=== PATIENT | male | born 1975 | race Caucasian/White ===

== ENCOUNTER 2018-02-28 20:13 | Emergency (ER) | payer OTHER ==
[2018-02-28 22:29] LABS: ABS Basophils 0 10^3/ul (0-0.2); ABS Eosinophils 0 10^3/ul (0-0.6); ABS Lymphocytes 1.7 10^3/ul (1.0-4.8); ABS Monocytes 0.7 10^3/ul (0-0.8); ABS Nucleated RBC 0 10^3/ul; Eosinophil % 0.1 % (0-6); Hematocrit 43 % (42-52); Hemoglobin 14.6 g/dl (14.0-18.0); Mean Corpuscular HGB Conc 34 g/dl (31-36); Mean Corpuscular Hemoglobin 31 pg (27-31); Mean Corpuscular Volume 90 fL (80-94); Mean Platelet Volume 7.1 um3 (7.4-10.4); Nucleated Red Blood Cells % 0.1; Platelet Count 161 10^3/ul (150-450); Red Blood Count 4.73 10^6/ul (4.00-5.40); Red Cell Distribution Width 15 % (10.5-15); White Blood Count 6.5 10^3/ul (3.5-10.8)
[2018-02-28 22:36] LABS: INR 0.86 (0.77-1.02)
[2018-02-28 22:49] LABS: EGFR Non-African American 110.9 (>60)
[2018-02-28 22:51] LABS: Urine Appearance Clear; Urine Blood Negative (Negative); Urine Color Straw; Urine Ketones Negative (Negative); Urine Protein Negative (Negative); Urine Specific Gravity 1.002 (1.010-1.030); Urine Urobilinogen Negative (Negative)
[2018-02-28] MEDS ORDERED: NS 0.9% 1000 ML* 2,000 ML IV ONE (23:39)
[2018-02-28] MEDS ORDERED: Ibuprofen TAB* 600 MG PO ONE (23:40)
--- NOTE | 2018-03-01 01:19 | ED ---
Substance Abuse/Use - HPI Summary HPI Summary: Level 5 caveat: Unable to obtain complete HPI due to AMS secondary to EtOH use The pt is a 43 y/o male accompanied by his sister presenting to [facility] c/o tremors since yesterday evening. He notes fever reaching 102 F, unproductive cough, muscular aches, sore throat, palpitations and a fall from his bed but denies head trauma and LOC. He reports that he tripped over a cord. The pt reports that he was sober for the last 1 year but relapsed. He currently consumes about 1L EtOH a day. His last drink was at 17:00 hrs today. The pt requests referral to EtOH rehabilitation. He has been attending AA meetings. - History Of Current Complaint Chief Complaint: EDGeneral Stated Complaint: SYNCOPE Time Seen by Provider: 02/28/18 22:52 Hx Obtained From: Patient, Family/Staff Veterinarian - Sister Hx From Patient Unobtainable Due To: Altered Mental Status Onset/Duration of Drug/ETOH Abuse: Years Timing Of Abuse: Daily, Recent Cessation For A Period Of - 1 year with relapse Alleviating Factor(s): Nothing Associated Signs And Symptoms: Palpitations, Cough Related Hx: Drug/Alcohol Last Used @ - 1700 hrs on 02/28/2018 - Allergies/Home Medications Allergies/Adverse Reactions: Allergies Allergy/AdvReac Type Severity Reaction Status Date / Time No Known Allergies Allergy Verified 02/28/18 20:17 PMH/Surg Hx/FS Hx/Imm Hx Previously Healthy: No - Level 5 caveat: Unable to obtain complete Mhx due to AMS secondary to EtOH Endocrine/Hematology History: Denies: Hx Diabetes Cardiovascular History: Denies: Hx Hypertension GI History: Reports: Other GI Disorders - [place] Sensory History: Denies: Hx Deafness, Hx Hearing Aid Neurological History: Reports: Hx Seizures - Alcohol withdrawal seizures - Cancer History Cancer Type, Location and Year: None reported - Surgical History Surgery Procedure, Year, and Place: None reported - Immunization History Immunizations Up to Date: Yes Infectious Disease History: No Infectious Disease History: Denies: Traveled Outside the [place] in Last 30 Days - Family History Known Family History: Positive: Hypertension - Social History Occupation: Employed Full-time Lives: With Family Alcohol Use: Daily Alcohol Amount: 1/2 liter of vodka per day (more some days) Substance Use Type: Reports: None Smoking Status (MU): Never Smoked Tobacco Review of Systems Constitutional: Negative - Head trauma, LOC , Other - Positive: Tremors, fall Positive: Fever Positive: Sore Throat Positive: Palpitations Positive: Cough Musculoskeletal: Other - Positive: Muscular aches All Other Systems Reviewed And Are Negative: No - Comments Additional Review of Systems Comments: Level 5 caveat: Unable to obtain complete ROS due to AMS secondary to EtOH use Physical Exam - Summary Physical Exam Summary: Level 5 caveat: Unable to obtain complete PE due to AMS secondary to EtOH use GENERAL: Patient is a well developed and nourished M who is lying comfortable in the stretcher. Patient is not in any acute respiratory distress. HEAD AND FACE: Normocephalic EYES: PERRLA, EOMI x 2. EARS: Hearing grossly intact. MOUTH: Oropharynx within normal limits. NECK: Supple, trachea is midline, no adenopathy, no JVD, no carotid bruit. CHEST: Symmetric, no tenderness at palpation LUNGS: Clear to auscultation bilaterally. No wheezing or crackles. CVS: Tachycardia. S1 and S2 present, no murmurs or gallops appreciated. ABDOMEN: Soft, non-tender. Bowel sounds are normal. No abdominal abnormal pulsations. EXTREMITIES: Full ROM in all major joints, no edema, no cyanosis or clubbing. NEURO: Alert and oriented x 3. No acute neurological deficits. Speech is normal and follows commands. SKIN: Dry mucous membranes. Warm Triage Information Reviewed: Yes Vital Signs On Initial Exam: Initial Vitals Temp Pulse Resp BP Pulse Ox 98.7 F 110 16 152/92 96 02/28/18 20:15 02/28/18 20:15 02/28/18 20:15 02/28/18 20:15 02/28/18 20:15 Vital Signs Reviewed: Yes Diagnostics - Vital Signs Vital Signs Temp Pulse Resp BP Pulse Ox 02/28/18 23:54 94 17 123/91 96 02/28/18 23:39 98.1 F 02/28/18 23:23 101 20 138/86 97 02/28/18 23:00 96 12 93 02/28/18 22:53 98 18 138/79 97 02/28/18 22:26 102 15 95 02/28/18 22:23 98 17 149/83 95 02/28/18 20:15 98.7 F 110 16 152/92 96 - Laboratory Lab Results: Lab Results 02/28/18 02/28/18 02/28/18 Range/Units 22:13 22:13 22:13 WBC 6.5 (3.5-10.8) 10^3/ul RBC 4.73 (4.00-5.40) 10^6/ul Hgb 14.6 (14.0-18.0) g/dl Hct 43 (42-52) % MCV 90 (80-94) fL MCH 31 (27-31) pg MCHC 34 (31-36) g/dl RDW 15 (10.5-15) % Plt Count 161 (150-450) 10^3/ul MPV 7.1 L (7.4-10.4) um3 Neut % (Auto) 61.8 (38-83) % Lymph % (Auto) 26.0 (25-47) % [place] % (Auto) 11.6 H (0-7) % Eos % (Auto) 0.1 (0-6) % Baso % (Auto) 0.5 (0-2) % Absolute Neuts (auto) 4.0 (1.5-7.7) 10^3/ul Absolute Lymphs (auto) 1.7 (1.0-4.8) 10^3/ul Absolute Monos (auto) 0.7 (0-0.8) 10^3/ul Absolute Eos (auto) 0 (0-0.6) 10^3/ul Absolute Basos (auto) 0 (0-0.2) 10^3/ul Absolute Nucleated RBC 0 10^3/ul Nucleated RBC % 0.1 INR (Anticoag Therapy) 0.86 (0.77-1.02) Sodium 138 (135-145) mmol/L Potassium 3.8 (3.5-5.0) mmol/L Chloride 98 L (101-111) mmol/L Carbon Dioxide 26 (22-32) mmol/L Anion Gap 14 H (2-11) mmol/L BUN 7 (6-24) mg/dL Creatinine 0.76 (0.67-1.17) mg/dL Est GFR ( Amer) 134.2 (>60) Est GFR (Non-Af Amer) 110.9 (>60) BUN/Creatinine Ratio 9.2 (8-20) Glucose 142 H (70-100) mg/dL Calcium 8.8 (8.6-10.3) mg/dL Total Bilirubin 0.60 (0.2-1.0) mg/dL AST 180 H (13-39) U/L ALT 99 H (7-52) U/L Alkaline Phosphatase 94 (34-104) U/L Troponin I 0.01 (<0.04) ng/mL Total Protein 7.3 (6.4-8.9) g/dL Albumin 3.6 (3.2-5.2) g/dL Globulin 3.7 (2-4) g/dL Albumin/Globulin Ratio 1.0 (1-3) Urine Color Urine Appearance Urine pH (5-9) Ur Specific [place] (1.010-1.030) Urine Protein (Negative) Urine Ketones (Negative) Urine Blood (Negative) Urine Nitrate (Negative) Urine Bilirubin (Negative) Urine Urobilinogen (Negative) Ur Leukocyte Esterase (Negative) Urine Glucose (Negative) Urine Opiates Screen (None Detect) Ur Barbiturates Screen (None Detect) Ur Phencyclidine Scrn (None Detect) Ur Amphetamines Screen (None Detect) U Benzodiazepines Scrn (None Detect) Urine Cocaine Screen (None Detect) U Cannabinoids Screen (None Detect) Serum Alcohol 370 H (<10) mg/dL Influenza A (Rapid) (Negative) Influenza B (Rapid) (Negative) Group A Strep Rapid (Negative) 02/28/18 02/28/18 02/28/18 Range/Units 22:41 22:41 23:46 WBC (3.5-10.8) 10^3/ul RBC (4.00-5.40) 10^6/ul Hgb (14.0-18.0) g/dl Hct (42-52) % MCV (80-94) fL MCH (27-31) pg MCHC (31-36) g/dl RDW (10.5-15) % Plt Count (150-450) 10^3/ul MPV (7.4-10.4) um3 Neut % (Auto) (38-83) % Lymph % (Auto) (25-47) % [place] % (Auto) (0-7) % Eos % (Auto) (0-6) % Baso % (Auto) (0-2) % Absolute Neuts (auto) (1.5-7.7) 10^3/ul Absolute Lymphs (auto) (1.0-4.8) 10^3/ul Absolute Monos (auto) (0-0.8) 10^3/ul Absolute Eos (auto) (0-0.6) 10^3/ul Absolute Basos (auto) (0-0.2) 10^3/ul Absolute Nucleated RBC 10^3/ul Nucleated RBC % INR (Anticoag Therapy) (0.77-1.02) Sodium (135-145) mmol/L Potassium (3.5-5.0) mmol/L Chloride (101-111) mmol/L Carbon Dioxide (22-32) mmol/L Anion Gap (2-11) mmol/L BUN (6-24) mg/dL Creatinine (0.67-1.17) mg/dL Est GFR ( Amer) (>60) Est GFR (Non-Af Amer) (>60) BUN/Creatinine Ratio (8-20) Glucose (70-100) mg/dL Calcium (8.6-10.3) mg/dL Total Bilirubin (0.2-1.0) mg/dL AST (13-39) U/L ALT (7-52) U/L Alkaline Phosphatase (34-104) U/L Troponin I (<0.04) ng/mL Total Protein (6.4-8.9) g/dL Albumin (3.2-5.2) g/dL Globulin (2-4) g/dL Albumin/Globulin Ratio (1-3) Urine Color Straw Urine Appearance Clear Urine pH 7.0 (5-9) Ur Specific [place] 1.002 L (1.010-1.030) Urine Protein Negative (Negative) Urine Ketones Negative (Negative) Urine Blood Negative (Negative) Urine Nitrate Negative (Negative) Urine Bilirubin Negative (Negative) Urine Urobilinogen Negative (Negative) Ur Leukocyte Esterase Negative (Negative) Urine Glucose Negative (Negative) Urine Opiates Screen None detected (None Detect) Ur Barbiturates Screen None detected (None Detect) Ur Phencyclidine Scrn None detected (None Detect) Ur Amphetamines Screen None detected (None Detect) U Benzodiazepines Scrn None detected (None Detect) Urine Cocaine Screen None detected (None Detect) U Cannabinoids Screen None detected (None Detect) Serum Alcohol (<10) mg/dL Influenza A (Rapid) (Negative) Influenza B (Rapid) (Negative) Group A Strep Rapid Negative (Negative) 02/28/18 Range/Units 23:46 WBC (3.5-10.8) 10^3/ul RBC (4.00-5.40) 10^6/ul Hgb (14.0-18.0) g/dl Hct (42-52) % MCV (80-94) fL MCH (27-31) pg MCHC (31-36) g/dl RDW (10.5-15) % Plt Count (150-450) 10^3/ul MPV (7.4-10.4) um3 Neut % (Auto) (38-83) % Lymph % (Auto) (25-47) % [place] % (Auto) (0-7) % Eos % (Auto) (0-6) % Baso % (Auto) (0-2) % Absolute Neuts (auto) (1.5-7.7) 10^3/ul Absolute Lymphs (auto) (1.0-4.8) 10^3/ul Absolute Monos (auto) (0-0.8) 10^3/ul Absolute Eos (auto) (0-0.6) 10^3/ul Absolute Basos (auto) (0-0.2) 10^3/ul Absolute Nucleated RBC 10^3/ul Nucleated RBC % INR (Anticoag Therapy) (0.77-1.02) Sodium (135-145) mmol/L Potassium (3.5-5.0) mmol/L Chloride (101-111) mmol/L Carbon Dioxide (22-32) mmol/L Anion Gap (2-11) mmol/L BUN (6-24) mg/dL Creatinine (0.67-1.17) mg/dL Est GFR ( Amer) (>60) Est GFR (Non-Af Amer) (>60) BUN/Creatinine Ratio (8-20) Glucose (70-100) mg/dL Calcium (8.6-10.3) mg/dL Total Bilirubin (0.2-1.0) mg/dL AST (13-39) U/L ALT (7-52) U/L Alkaline Phosphatase (34-104) U/L Troponin I (<0.04) ng/mL Total Protein (6.4-8.9) g/dL Albumin (3.2-5.2) g/dL Globulin (2-4) g/dL Albumin/Globulin Ratio (1-3) Urine Color Urine Appearance Urine pH (5-9) Ur Specific [place] (1.010-1.030) Urine Protein (Negative) Urine Ketones (Negative) Urine Blood (Negative) Urine Nitrate (Negative) Urine Bilirubin (Negative) Urine Urobilinogen (Negative) Ur Leukocyte Esterase (Negative) Urine Glucose (Negative) Urine Opiates Screen (None Detect) Ur Barbiturates Screen (None Detect) Ur Phencyclidine Scrn (None Detect) Ur Amphetamines Screen (None Detect) U Benzodiazepines Scrn (None Detect) Urine Cocaine Screen (None Detect) U Cannabinoids Screen (None Detect) Serum Alcohol (<10) mg/dL Influenza A (Rapid) Negative (Negative) Influenza B (Rapid) Negative (Negative) Group A Strep Rapid (Negative) Result Diagrams: 02/28/18 22:13 02/28/18 22:13 Lab Statement: Any lab studies that have been ordered have been reviewed, and results considered in the medical decision making process. - Radiology CXR Radiology Interpretation Completed By: ED Physician - IMPRESSION: No acute processes - EKG 22:14 Cardiac Rate: Tachycardia - 101 bpm Summary of EKG Findings: Normal axes Course/Dx - Course Course Of Treatment: A 43 year-old M presents to the ED with a CC of tremors since today evening. He notes fever reaching 102 F, unproductive cough, muscular aches, sore throat, and palpitations. The pt reports that he was sober for the last 1 year but relapsed. A physical exam revealed tachycardia and dry mucous memnranes. A CXR I unremarkable. An EKG reveals tachycardia. In the ED course, pt was given Chlordiazepoxide 25 mg PO, Iburofen 600mg PO and N.s 0.9% 2000 ml IV with much imrovment. Upon further investigation, his sister revealed that patient was brought here by his parents for inpatient detox. I explained to them that there is no detox service here at [facility]. Patient will be discharged with a final Dx of alcohol intoxication. I referred the patient to the [facility] for inpatient detoxication. He was given a Rx for valium to prevent withdrawal. I discussed results with patient and he agrees with this plan. He is hemodynamically stable upon discharge. Strict return precautions given and he will otherwise follow up with his PCP. Allergies noted. The pt will be accompanied by his sister upon departure. - Diagnoses Differential Diagnosis/HQI/PQRI: Positive: Alcohol Abuse, Alcohol Withdrawal Provider Diagnoses: Alcohol intoxication Discharge - Sign-Out/Discharge Documenting (check all that apply): Patient Departure - DC - Discharge Plan Condition: Improved Disposition: HOME Prescriptions: chlordiazePOXIDE CAP* [Librium CAP*] 25 mg PO TID #12 cap MDD 3 Patient Education Materials: Alcohol Intoxication (ED) Referrals: [facility] [Outside] Additional Instructions: Follow up with [facility] as soon as possible. Return to ED for any new or worsening symptoms - Billing Disposition and Condition Condition: IMPROVED Disposition: Home - Attestation Statements Document Initiated by Scribe: Yes Documenting Scribe: Zabrina Umana Provider For Whom Cora is Documenting (Include Credential): Dr. Lyndsey Paniagua MD Scribe Attestation: Zabrina Vega , scribed for Dr. Lyndsey Paniagua MD on 03/01/18 at 0524. Scribe Documentation Reviewed: Yes Provider Attestation: The documentation as recorded by the Zabrina anderson accurately reflects the service I personally performed and the decisions made by me, Dr. Lyndsey Paniagua MD
[2018-03-01] MEDS ORDERED: chlordiazePOXIDE CAP* 25 MG PO ONE (01:20)
[2018-03-01 02:16] VITALS: BP 138/79
--- NOTE | 2018-03-01 08:06 | RAD ---
HISTORY: syncope COMPARISONS: None VIEWS: 1: frontal AP view of the chest at 10:10 PM FINDINGS: LINES AND TUBES: None. CARDIOMEDIASTINAL SILHOUETTE: The cardiomediastinal silhouette is normal for portable technique. PLEURA: The costophrenic angles are sharp. No pleural abnormalities are noted. LUNG PARENCHYMA: The lungs are clear. ABDOMEN: The upper abdomen is clear. There is no subphrenic gas. BONES AND SOFT TISSUES: No bone or soft tissue abnormalities are noted. IMPRESSION: NO ACTIVE CARDIOPULMONARY DISEASE. R0
== END 2018-03-01 02:15 | disposition home or self-care (01) ==
LOC: ED 20:13
DX: F10.129 Alcohol abuse with intoxication, unspecified (principal); R50.9 Fever, unspecified; J02.9 Acute pharyngitis, unspecified; R00.2 Palpitations; R05 Cough; Y90.8 Blood alcohol level of 240 mg/100 ml or more
CPT/HCPCS: 36415; 71045; 80053; 80307; 80320; 81003; 84484; 85025; 85610; 86703; 87651; 93005; 99283; A9270-GY; G0480